=== PATIENT | female | born 1975 | race American Indian/Alaskan Native ===

== ENCOUNTER 2017-11-24 18:11 | Emergency (ER) | payer MEDICAID, OTHER ==
--- NOTE | 2017-11-24 19:41 | C.PDOC ---
History Of Present Illness 42 year old female presents to the ED c/o SOB, ankle swelling and sinus pressure. Patient is speaking in full sentences. Patient denies fever, chills, nausea, vomit, weakness, numbness, CP, palpitations. Time Seen by Provider: 11/24/17 19:41 Chief Complaint (Nursing): Shortness Of Breath History Per: Patient History/Exam Limitations: no limitations Onset/Duration Of Symptoms: Days Current Symptoms Are (Timing): Still Present Initiating Event: Upper Respiratory Illness Quality: Pressure Current Respiratory Medications: See Home Med List Associated Symptoms: Ankle/Leg Swelling Recent travel outside of the [place]: No Additional History Per: Patient Past Medical History Reviewed: Historical Data, Nursing Documentation, Vital Signs Vital Signs: Last Vital Signs Temp 98.8 F 11/24/17 18:30 Pulse 108 H 11/24/17 18:30 Resp 22 11/24/17 18:30 BP 127/83 11/24/17 18:30 Pulse Ox 95 11/24/17 20:36 - Medical History PMH: No Chronic Diseases Surgical History: No Surg Hx Family History: States: Unknown Family Hx - Social History Hx Alcohol Use: No Hx Substance Use: No - Immunization History Hx Tetanus Toxoid Vaccination: No Hx Influenza Vaccination: Yes Hx Pneumococcal Vaccination: No Review Of Systems Constitutional: Negative for: Fever, Chills Cardiovascular: Negative for: Chest Pain, Palpitations Respiratory: Positive for: Shortness of Breath. Negative for: Cough Gastrointestinal: Negative for: Nausea, Vomiting Musculoskeletal: Positive for: Other (ankle swelling) Skin: Negative for: Rash Physical Exam - Physical Exam Appears: Non-toxic, No Acute Distress, Other (morbidly obese) Skin: Warm, Dry Head: Normacephalic Eye(s): bilateral: Normal Inspection Oral Mucosa: Moist Neck: Supple Chest: Symmetrical Cardiovascular: Rhythm Regular Respiratory: No Rales, Rhonchi (scattered ), No Wheezing Gastrointestinal/Abdominal: Soft, No Tenderness, No Guarding, No Rebound, Other (morbidly obese) Back: Normal Inspection Extremity: Normal ROM, Pedal Edema (trace bilateral ), Capillary Refill (< 2 seconds) Extremity: Bilateral: Atraumatic, Normal Color And Temperature Pulses: Left Dorsalis Pedis: Normal, Right Dorsalis Pedis: Normal Neurological/Psych: Oriented x3, Normal Speech Gait: Steady ED Course And Treatment - Laboratory Results Result Diagrams: 11/24/17 20:25 11/24/17 20:25 O2 Sat by Pulse Oximetry: 95 (ON RA) Pulse Ox Interpretation: Normal - Radiology CXR: Interpreted by Me, Viewed By Me CXR Interpretation: No: Infiltrates, Fracture, Pnemothorax Progress Note: Plan: - VBG. - EKG. - Labs. - CXR. - Duoneb 3 ml INH. - Solumedrol 125 mg IVP. - UA Reevaluation Time: 22:05 Reassessment Condition: Improved Disposition Counseled Patient/Family Regarding: Studies Performed, Diagnosis, Need For Followup, Rx Given - Disposition Referrals: Marvin Kaplan MD [Staff Provider] - Disposition: HOME/ ROUTINE Disposition Time: 19:41 Condition: FAIR Prescriptions: Albuterol HFA [Ventolin HFA 90 mcg/actuation (8 g)] 2 puff IH [id number] PRN #1 puff PRN Reason: Wheezing Azithromycin [Zithromax Tri-Vito] 500 mg PO DAILY #3 tablet Instructions: Acute Bronchitis, Obstructive Sleep Apnea, Adult (DC) Forms: [employer] (Chinese) - Clinical Impression Clinical Impression: Bronchitis, Sleep apnea - Scribe Statement The provider has reviewed the documentation as recorded by the Scribe Gurmeet Hobbs All medical record entries made by the Scribe were at my direction and personally dictated by me. I have reviewed the chart and agree that the record accurately reflects my personal performance of the history, physical exam, medical decision making, and the department course for this patient. I have also personally directed, reviewed, and agree with the discharge instructions and disposition.
[2017-11-24 20:29] LABS: BASO # 0.1 K/uL (0.0-0.2); BASO % 0.7 % (0.0-2.0); EOS # 0.3 K/uL (0.0-0.7); EOS % 3.1 % (0.0-4.0); HEMOGLOBIN 11.3 g/dL (11.0-16.0); LYMPH # 3.2 K/uL (1.0-4.3); LYMPH % 36.1 % (20.0-40.0); MEAN CELL VOLUME 83.9 fL (81.0-99.0); MEAN CORPUSCULAR HEMOGLOBIN 28.1 pg (27.0-31.0); MEAN CORPUSCULAR HGB CONC 33.5 g/dL (33.0-37.0); MEAN PLATELET VOLUME 7.8 fL (7.2-11.7); MONO # 0.6 K/uL (0.0-0.8); MONO % 6.8 % (0.0-10.0); NEUT # 4.8 K/uL (1.8-7.0); NEUT % 53.3 % (50.0-75.0); RBC 4.04 Mil/uL (3.80-5.20); RED CELL DISTRIBUTION WIDTH 14.1 % (11.5-14.5); WHITE BLOOD COUNT 8.9 K/uL (4.8-10.8)
[2017-11-24 20:41] LABS: CALCIUM 8.6 mg/dl (8.6-10.4); GFR AFRICAN-AMERICAN > 60; GFR NON-AFRICAN AMERICAN > 60
[2017-11-24 20:42] LABS: ALBUMIN 3.7 g/dL (3.5-5.0); ALT/SGPT 29 U/L (9-52); AST/SGOT 39 U/L (14-36); BLOOD UREA NITROGEN 14 mg/dL (7-17)
[2017-11-24 20:44] LABS: VENOUS BLOOD GAS BASE EXCESS 4.3 mmol/L (0.0-2.0); VENOUS BLOOD GAS PCO2 59 mmHg (40-60); VENOUS BLOOD GAS PO2 36 mm/Hg (30-55); VENOUS BLOOD PH 7.34 (7.32-7.43)
[2017-11-24 20:49] LABS: SQUAMOUS EPITHIAL 14 /hpf (0-5); URINE BACTERIA RARE (<OCC); URINE BILIRUBIN NEGATIVE (NEGATIVE); URINE BLOOD NEGATIVE (NEGATIVE); URINE CLARITY Hazy (Clear); URINE COLOR Yellow (YELLOW); URINE GLUCOSE (UA) NORMAL (Normal); URINE LEUKOCYTE ESTERASE 1+ Leu/uL (Negative); URINE PROTEIN NEGATIVE (NEGATIVE)
[2017-11-24 20:49] LABS: B-TYPE NATRIURETIC PEPTIDE 56.3 pg/mL (0-450)
[2017-11-24] MEDS ORDERED: Piperacillin/Tazobact 3.375 gm 100 ML IVPB ONE (21:02)
[2017-11-24 21:12] LABS: BARBITURATES, UR NEGATIVE (NEGATIVE); BENZODIAZEPINES, UR NEGATIVE (NEGATIVE); OPIATES, UR NEGATIVE (NEGATIVE)
[2017-11-24 21:13] LABS: PHENCYCLIDINE, UR POSITIVE (NEGATIVE)
[2017-11-24] MEDS: Albuterol-Ipratrop 3 mg / 0.5 (3 ml) UD IH SCH (22:32)
[2017-11-24 23:04] VITALS: BP 110/64; PULSE 78; RESP 20; TEMP 99.6; O2SAT 98
--- NOTE | 2017-11-25 08:13 | RAD ---
Chest x-ray single frontal view History: Shortness breath. Comparison: None available. Findings: Mild venous congestion. Right hilar prominence. Heart size within normal limits. Degenerative changes in the spine. Impression: Mild venous congestion. Right hilar prominence.
== END 2017-11-24 23:04 | disposition home or self-care (01) ==
LOC: C.ER 18:11
DX: J40 Bronchitis, not specified as acute or chronic (principal); G47.30 Sleep apnea, unspecified
CPT/HCPCS: 71045; 80053; 80324; 80345; 80346; 80349; 80353; 80358; 80361; 81001; 82803; 82948; 83880; 83992; 85025; 96374; 96375; 99285; J1885; J2930

== ENCOUNTER 2018-01-10 07:33 | Emergency (ER) | payer OTHER ==
[2018-01-10 07:38] VITALS: BMI 49.6
[2018-01-10 07:46] VITALS: RESP 18
--- NOTE | 2018-01-10 07:48 | C.PDOC ---
History Of Present Illness 42 y/o morbidly obese female with asthma c/o one month of bilateral lower back pain, (non radiating), worse with walking and movement, no associated numbness or tingling. pt also c/o right ankle swelling x 2 weeks. pt seen by Dr Kaplan 2 days ago and recommendation was for weight loss. pt reports taking ibuprofen with no relief. denies cp, c/o sob with exertion. Time Seen by Provider: 01/10/18 07:43 Chief Complaint (Nursing): Back Pain History Per: Patient History/Exam Limitations: no limitations Onset/Duration Of Symptoms: Days Current Symptoms Are (Timing): Still Present Quality Of Discomfort: "Pain" Associated Symptoms: None. denies: Incontinence, New Weakness, New Numbness Exacerbating Factor(s): Movement Recent travel outside of the [place]: No Additional History Per: Patient Past Medical History Reviewed: Historical Data, Nursing Documentation, Vital Signs Vital Signs: Last Vital Signs Temp 98 F 01/10/18 11:34 Pulse 86 01/10/18 11:34 Resp 18 01/10/18 11:34 BP 126/73 01/10/18 11:34 Pulse Ox 95 01/12/18 02:36 - Medical History PMH: Asthma Family History: States: Unknown Family Hx - Social History Hx Alcohol Use: No Hx Substance Use: No - Immunization History Hx Tetanus Toxoid Vaccination: No Hx Influenza Vaccination: Yes Hx Pneumococcal Vaccination: No Review Of Systems Constitutional: Negative for: Fever, Chills Cardiovascular: Negative for: Chest Pain, Palpitations Respiratory: Positive for: SOB with Excertion. Negative for: Cough Gastrointestinal: Negative for: Nausea, Vomiting, Abdominal Pain Genitourinary: Negative for: Dysuria, Frequency, Incontinence Musculoskeletal: Positive for: Back Pain, Foot Pain (right ankle swelling) Neurological: Negative for: Weakness, Numbness, Headache Physical Exam - Physical Exam Appears: Non-toxic, No Acute Distress, Other (morbidly obese) Skin: Normal Color, Warm, Dry Head: Atraumatic, Normacephalic Eye(s): bilateral: Normal Inspection Oral Mucosa: Moist Neck: Normal ROM, Supple Chest: Symmetrical, No Tenderness Cardiovascular: Rhythm Regular, No Murmur Respiratory: No Accessory Muscle Use, No Rales, No Rhonchi, No Wheezing, Other ( distant breath sounds bilaterally due to body habitus) Gastrointestinal/Abdominal: Soft, No Tenderness, No Guarding Extremity: Normal ROM, Pedal Edema (+2 pitting edema to lower extremities worse on right ankle- old surgical scar on medial asp), No Calf Tenderness, Capillary Refill (less than 2 seconds), No Deformity, Other (scar to medial aspect of right ankle from prior surgery) Pulses: Left Dorsalis Pedis: Normal, Right Dorsalis Pedis: Normal Neurological/Psych: Oriented x3, Normal Speech, Normal Cognition, Normal Motor, Normal Sensation ED Course And Treatment - Laboratory Results Result Diagrams: 01/10/18 09:45 01/10/18 09:45 O2 Sat by Pulse Oximetry: 95 Pulse Ox Interpretation: Normal Medical Decision Making Medical Decision Making: Plan: Blood work UPreg 1121 pt with normal labs, normal bnp, will d/c with muscle relaxant. bilateral leg swelling likely due to body habitus. pt given meds for pain. Disposition Counseled Patient/Family Regarding: Studies Performed, Diagnosis, Need For Followup, Rx Given - Disposition Referrals: Marvin Kaplan MD [Staff Provider] - Disposition: HOME/ ROUTINE Disposition Time: 11:24 Condition: GOOD Additional Instructions: Please keep legs elevated when possible. Take naproxen for joyce. Take muscle relaxant up to 3 times a day buut not when driving or operating machinery. 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 - Scribe Statement The provider has reviewed the documentation as recorded by the Scribe KP All medical record entries made by the Scribe were at my direction and personally dictated by me. I have reviewed the chart and agree that the record accurately reflects my personal performance of the history, physical exam, medical decision making, and the department course for this patient. I have also personally directed, reviewed, and agree with the discharge instructions and disposition.
[2018-01-10 09:56] LABS: BASO # 0.1 K/uL (0.0-0.2); EOS # 0.4 K/uL (0.0-0.7); EOS % 3.6 % (0.0-4.0); HEMOGLOBIN 11.1 g/dL (11.0-16.0); LYMPH # 4.5 K/uL (1.0-4.3); LYMPH % 38.7 % (20.0-40.0); MEAN CELL VOLUME 83.7 fL (81.0-99.0); MEAN CORPUSCULAR HEMOGLOBIN 27.7 pg (27.0-31.0); MEAN CORPUSCULAR HGB CONC 33.1 g/dL (33.0-37.0); MEAN PLATELET VOLUME 8.9 fL (7.2-11.7); MONO # 0.9 K/uL (0.0-0.8); MONO % 7.3 % (0.0-10.0); NEUT # 5.7 K/uL (1.8-7.0); NEUT % 49.4 % (50.0-75.0); NRBC % 0.1 % (0.0-2.0); RBC 4.01 Mil/uL (3.80-5.20); RED CELL DISTRIBUTION WIDTH 14.3 % (11.5-14.5); WHITE BLOOD COUNT 11.6 K/uL (4.8-10.8)
[2018-01-10 10:15] LABS: ALB/GLOB RATIO 1.2 (1.0-2.1); ALT/SGPT 24 U/L (9-52); AST/SGOT 25 U/L (14-36); BLOOD UREA NITROGEN 17 mg/dL (7-17); CALCIUM 9.3 mg/dl (8.6-10.4); GFR AFRICAN-AMERICAN > 60; GFR NON-AFRICAN AMERICAN > 60
[2018-01-10 10:23] LABS: B-TYPE NATRIURETIC PEPTIDE 87.1 pg/mL (0-450)
[2018-01-10] MEDS ORDERED: Lidocaine 5% Patch TD ONE (11:03)
[2018-01-10 11:35] VITALS: BP 126/73; PULSE 86; TEMP 98
[2018-01-11] MEDS ORDERED: Lidocaine 5% Patch TD SCH (10:00)
[2018-01-12 02:29] VITALS: O2SAT 95
== END 2018-01-10 11:35 | disposition home or self-care (01) ==
LOC: C.ER 07:33
DX: M54.5 Low back pain (principal); R60.9 Edema, unspecified; E66.01 Morbid (severe) obesity due to excess calories
CPT/HCPCS: 80053; 83880; 85025; 96374; 99284; J1885

== ENCOUNTER 2018-09-22 03:53 | Emergency (ER) | payer OTHER ==
[2018-09-22 04:42] VITALS: BMI 50.5
[2018-09-22 04:52] VITALS: O2SAT 94
--- NOTE | 2018-09-22 05:52 | C.PDOC ---
History Of Present Illness 43 year old female, whose past past medical history includes chronic back pain, presents to the ED for evaluation of back pain. Patient states she usually takes Tramadol and a muscle relaxant for her pain. She states she has been taking Tramadol for "years," without relief of her pain. Patient denies taking NSAIDS. Patient's PMD is Dr. Kaplan, whom she follows up with whenever she needs a refill of Tramadol. Patient states her back pain has persisted, and she also has pain to the front of her lef lower leg for two weeks. She also complains of left arm pain for two weeks. Patient took her last Tramadol at 2200 without relief and presents to the ED for further evaluation. Patient denies fever, chills, chest pain, shortness of breath, abdominal pain, nausea, vomiting, diarrhea, urinary/bowel incontinence. Time Seen by Provider: 09/22/18 04:29 Chief Complaint (Nursing): Medical Clearance History Per: Patient History/Exam Limitations: no limitations Onset/Duration Of Symptoms: Hrs Current Symptoms Are (Timing): Still Present Additional History Per: Patient Past Medical History Reviewed: Historical Data, Nursing Documentation, Vital Signs Vital Signs: Last Vital Signs Temp 97.2 F L 09/22/18 04:42 Pulse 101 H 09/22/18 04:42 Resp 24 09/22/18 04:42 BP 111/72 09/22/18 04:42 Pulse Ox 94 L 09/22/18 04:42 - Medical History PMH: Asthma Surgical History: No Surg Hx Family History: States: Unknown Family Hx - Social History Hx Alcohol Use: No Hx Substance Use: No - Immunization History Hx Tetanus Toxoid Vaccination: No Hx Influenza Vaccination: Yes Hx Pneumococcal Vaccination: No Review Of Systems Constitutional: Negative for: Fever, Chills, Weakness Cardiovascular: Negative for: Chest Pain Respiratory: Negative for: Cough, Shortness of Breath Gastrointestinal: Negative for: Nausea, Vomiting, Diarrhea Genitourinary: Negative for: Dysuria, Hematuria Musculoskeletal: Positive for: Arm Pain, Back Pain, Leg Pain Skin: Negative for: Rash Neurological: Negative for: Weakness, Numbness, Dizziness Physical Exam - Physical Exam Appears: Well, Non-toxic, No Acute Distress, Other (obese, appears uncomfortable ) Skin: Normal Color, Warm, No Rash Head: Atraumatic, Normacephalic Neck: Normal ROM, Supple Chest: Symmetrical Respiratory: No Accessory Muscle Use, Other (normal inspiratory effort ) Back: No Vertebral Tenderness, No Paraspinal Tenderness, Other (normal straight leg raise, ambulatory with steady upright gait ) Extremity: Normal ROM, Other (mild pitting edema to bilateral lower extremities ) Extremity: Bilateral: Atraumatic Pulses: Left Dorsalis Pedis: Normal, Right Dorsalis Pedis: Normal Neurological/Psych: Oriented x3, Normal Cranial Nerves (grossly intact ), Normal Motor, Normal Sensation ED Course And Treatment O2 Sat by Pulse Oximetry: 94 Medical Decision Making Medical Decision Making: Progress: Toradol IM given for pain. On reassessment, patient is resting comfortably, showing no signs of distress and reports an improvement in her pain. Patient is stable for discharge and is advised to f/u with her PMD within 1-2 days for further evaluation. 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 - Scribe Statement The provider has reviewed the documentation as recorded by the Scribe (Ginny Chen) All medical record entries made by the Scribe were at my direction and personally dictated by me. I have reviewed the chart and agree that the record accurately reflects my personal performance of the history, physical exam, medical decision making, and the department course for this patient. I have also personally directed, reviewed, and agree with the discharge instructions and disposition.
[2018-09-22 06:10] VITALS: BP 117/78; PULSE 94; RESP 18; TEMP 98.8
== END 2018-09-22 06:10 | disposition home or self-care (01) ==
LOC: C.ER 03:53
DX: G89.29 Other chronic pain (principal)
CPT/HCPCS: 96372; 99282; J1885

== ENCOUNTER 2018-09-30 12:52 | Outpatient (CLI) | payer OTHER | END 2018-09-30 12:53 | disposition home or self-care (01) | LOC: C.PAT 12:52 | DX: C11.0 Malignant neoplasm of superior wall of nasopharynx (principal) ==